=== PATIENT | male | born 1975 | race Two or more races ===

== ENCOUNTER 2024-01-27 19:11 | Inpatient (IN) | payer OTHER ==
[~2024-01-27] VITALS: Ht 167.6 cm; Wt 46.3 kg
[2024-01-27] MEDS: IV NS 0.9% 1,000 ML BAG IV ONE (19:55)
[2024-01-27] MEDS ORDERED: CEFEPIME 1 GM VIAL ONE (20:00)
[2024-01-27] MEDS ORDERED: ACETAMINOPHEN ES 500 MG TABLET ONE (20:01)
[2024-01-27] MEDS ORDERED: VANCOMYCIN 1 GM /D5W 250 ML PB IV ONE (20:01)
[2024-01-27] MEDS: ACETAMINOPHEN ES 500 MG TABLET PO ONE (20:05)
[2024-01-27] MEDS: CEFEPIME 1 GM in IV D5W 50 ML IV ONE (20:15)
[2024-01-27 20:35] LABS: BASOPHILS # (AUTO) 0.1 K/uL (0.0-0.2); BASOPHILS % (AUTO) 0.6 % (0.0-2.0); EOSINOPHILS # (AUTO) 0.2 K/uL (0.0-0.7); EOSINOPHILS % (AUTO) 0.7 % (0.0-6.0); HEMATOCRIT 26 % (39-51); HEMOGLOBIN 8.8 g/dL (13.5-17.5); LYMPHOCYTES # (AUTO) 1.9 K/uL (0.8-4.8); LYMPHOCYTES % (AUTO) 8.1 % (20.0-44.0); MEAN CORPUSCULAR HEMOGLOBIN 27 PG (26.0-33.0); MEAN CORPUSCULAR HGB CONC 34 g/dl (31.0-36.0); MEAN CORPUSCULAR VOLUME 79 fL (80-96); MONOCYTES # (AUTO) 1.3 K/uL (0.1-1.30); MONOCYTES % (AUTO) 5.5 % (2.0-12.0); NEUTROPHILS # (AUTO) 20.1 K/uL (1.8-8.9); NEUTROPHILS % (AUTO) 85.1 % (43.0-81.0); PLATELET COUNT (AUTO) 611 K/uL (150-450); RED BLOOD CELL COUNT(AUTO) 3.32 MIL/uL (4.5-6.0); RED CELL DISTRIBUTION WIDTH 18.9 % (11.5-15.0); WHITE BLOOD COUNT (AUTO) 23.7 K/uL (4.3-11.0)
[2024-01-27] MEDS: VANCOMYCIN 1 GM in IV D5W 250 ML IV ONE (20:50)
[2024-01-27 20:51] LABS: LACTIC ACID 1.9 mmol/L (0.4-2.0)
[2024-01-27 21:01] LABS: CALCIUM, SERUM 8.3 mg/dL (8.5-10.1); CARBON DIOXIDE 17 mmol/L (21-32); CHLORIDE 99 mmol/L (98-107); CREATININE 3.1 mg/dL (0.6-1.3); GLUCOSE 183 mg/dL (74-106); POTASSIUM 4.5 mmol/L (3.5-5.1); SODIUM SERUM 130 mmol/L (136-145); UREA NITROGEN, BLOOD 52 mg/dL (7-18)
[2024-01-27 21:06] LABS: ALANINE AMINOTRANSFERASE 79 U/L (12-78); ALBUMIN 1.7 g/dL (3.4-5.0); ALKALINE PHOSPHATASE 392 U/L (46-116); ASPARTATE AMINOTRANSFERASE 69 U/L (15-37); BILIRUBIN,TOTAL 1.4 mg/dL (0.2-1.0); TOTAL PROTEIN, SERUM 7.8 g/dL (6.4-8.2)
[2024-01-27 22:08] LABS: INR 1.2 (0.91-1.10); PARTIAL THROMBOPLASTIN TIME 34.8 SEC (24.3-34.3); PROTHROMBIN TIME 12.6 SECS (9.2-11.1)
[2024-01-27 23:27] LABS: ANISOCYTOSIS 1+; BASOPHILS % (MANUAL) 0 % (0.0-2.0); EOSINOPHILS % (MANUAL) 0 % (0-4); LYMPHOCYTES % (MANUAL) 10 % (16-48); MONOCYTES % (MANUAL) 3 % (0-11.0); NEUTROPHILS % (MANUAL) 87 (42-76); PLATELET ESTIMATE INCREASED
[2024-01-27] MEDS ORDERED: MAG HYDROX/AL HYDROX/SIMETH 30 ML UDC PO PRN (23:30)
[2024-01-27] MEDS ORDERED: ONDANSETRON HCL/PF 4 MG/2 ML VIAL IVP PRN (23:30)
[2024-01-27] MEDS ORDERED: ZOLPIDEM TARTRATE 5 MG TABLET PO PRN (23:30)
[2024-01-27] MEDS ORDERED: MAGNESIUM HYDROXIDE 30 ML UDC PO PRN (23:30)
[2024-01-27] MEDS ORDERED: ENOXAPARIN SODIUM 30 MG/0.3 ML DISP.SYRIN SQ SCH (23:30)
[2024-01-28] VITALS: BP 133/84; TEMP 99; O2SAT 98
[2024-01-28 04:00] VITALS: BP 128/59; TEMP 97.5; O2SAT 100
[2024-01-28 07:03] LABS: BASOPHILS # (AUTO) 0.1 K/uL (0.0-0.2); BASOPHILS % (AUTO) 0.3 % (0.0-2.0); EOSINOPHILS # (AUTO) 0.3 K/uL (0.0-0.7); EOSINOPHILS % (AUTO) 1.5 % (0.0-6.0); HEMATOCRIT 26 % (39-51); HEMOGLOBIN 8.5 g/dL (13.5-17.5); LYMPHOCYTES # (AUTO) 1.2 K/uL (0.8-4.8); LYMPHOCYTES % (AUTO) 5.5 % (20.0-44.0); MEAN CORPUSCULAR HEMOGLOBIN 26 PG (26.0-33.0); MEAN CORPUSCULAR HGB CONC 33 g/dl (31.0-36.0); MEAN CORPUSCULAR VOLUME 80 fL (80-96); MONOCYTES # (AUTO) 1.3 K/uL (0.1-1.30); MONOCYTES % (AUTO) 5.9 % (2.0-12.0); NEUTROPHILS # (AUTO) 19.2 K/uL (1.8-8.9); NEUTROPHILS % (AUTO) 86.8 % (43.0-81.0); PLATELET COUNT (AUTO) 630 K/uL (150-450); RED BLOOD CELL COUNT(AUTO) 3.25 MIL/uL (4.5-6.0); RED CELL DISTRIBUTION WIDTH 18.8 % (11.5-15.0); WHITE BLOOD COUNT (AUTO) 22.1 K/uL (4.3-11.0)
[2024-01-28 07:42] LABS: ALBUMIN 1.7 g/dL (3.4-5.0); BILIRUBIN,DIRECT 1.1 mg/dL (0.0-0.2); BILIRUBIN,TOTAL 1.4 mg/dL (0.2-1.0); CALCIUM, SERUM 9.3 mg/dL (8.5-10.1); CREATININE 2.8 mg/dL (0.6-1.3); MAGNESIUM 2.1 mg/dL (1.8-2.4); PHOSPHORUS 3.8 mg/dL (2.5-4.9); POTASSIUM 4.5 mmol/L (3.5-5.1); TOTAL PROTEIN, SERUM 8.2 g/dL (6.4-8.2)
[2024-01-28 07:51] LABS: THYROID STIMULATING HORMONE 1.02 uIU/mL (0.358-3.74)
[2024-01-28 08:00] VITALS: BP 128/58; TEMP 97.8; O2SAT 97
[2024-01-28] MEDS: PANTOPRAZOLE 40 MG TABLET.DR PO SCH (08:09)
[2024-01-28] MEDS: ENOXAPARIN SODIUM 30 MG/0.3 ML DISP.SYRIN SQ SCH (08:10)
[2024-01-28] MEDS ORDERED: NEPRO VAN 237 ML CAN PO PRN (08:30)
[2024-01-28] MEDS: IV LR 1000 ML 1,000 ML IV SCH (09:47)
[2024-01-28] MEDS ORDERED: TAMS-12 PO (09:53)
[2024-01-28] MEDS ORDERED: GABA300C PO (09:53)
[2024-01-28] MEDS ORDERED: AMLO2.5T4 PO (09:53)
[2024-01-28] MEDS ORDERED: METF-442 PO (09:53)
[2024-01-28] MEDS: NEOMY SULF/BACITRAC ZN/POLY 15 GM TUBE TP SCH (10:15)
[2024-01-28] MEDS: ACETAMINOPHEN 325 MG TABLET PO PRN (11:16)
[2024-01-28] MEDS ORDERED: ROCURONIUM BROMIDE 50 MG/5 ML ONE (11:52)
[2024-01-28] MEDS ORDERED: FENTANYL PF 250MCG/5ML AMPUL ONE (11:53)
[2024-01-28 12:00] VITALS: BP 140/85; TEMP 100.4; O2SAT 97
[2024-01-28] MEDS ORDERED: FENTANYL PF 100MCG/2ML AMPUL ONE (13:33)
[2024-01-28] MEDS ORDERED: MIDAZOLAM HCL 2 MG/2ML VIAL ONE (13:33)
[2024-01-28] MEDS ORDERED: ALBUMIN 5% 250 ML IV ONE (13:34)
[2024-01-28] MEDS ORDERED: BUPIVACAINE 0.5 % PF 150 MG/30 ML VIAL ONE (13:55)
[2024-01-28 13:59] LABS: HEMOGLOBIN 8.8 g/dL (13.5-17.5)
[2024-01-28] MEDS ORDERED: DEXTROSE 50%-WATER 50 ML DISP.SYRIN IV PRN (14:30)
[2024-01-28 16:00] VITALS: BP 146/76; TEMP 98.6; O2SAT 97
[2024-01-28] MEDS: INSULIN REGULAR, HUMAN 100 UNIT/ML 3 ML VIAL SQ PRN (16:15)
[2024-01-28] MEDS: BLOOD SUGAR DIAGNOSTIC 1 EACH STRIP IN SCH (16:15)
[2024-01-28] MEDS ORDERED: INSU100I30 SQ (16:22)
[2024-01-28] MEDS ORDERED: INSU100C10 SQ (16:22)
[2024-01-28 20:00] VITALS: BP 149/79; TEMP 101.3; O2SAT 98
[2024-01-28] MEDS: CEFEPIME 1 GM in IV D5W 50 ML IV SCH (20:23)
[2024-01-28] MEDS: VANCOMYCIN 500 MG in IV D5W 100ml IV SCH (20:25)
[2024-01-29] VITALS (7 sets, daily range): BP systolic 124–144; BP diastolic 70–80; TEMP 97.2–98.8; O2SAT 97–100
[2024-01-29 07:27] LABS: BASOPHILS # (AUTO) 0.1 K/uL (0.0-0.2); BASOPHILS % (AUTO) 0.6 % (0.0-2.0); EOSINOPHILS # (AUTO) 0.6 K/uL (0.0-0.7); EOSINOPHILS % (AUTO) 3.6 % (0.0-6.0); HEMATOCRIT 23 % (39-51); HEMOGLOBIN 7.8 g/dL (13.5-17.5); LYMPHOCYTES # (AUTO) 1.1 K/uL (0.8-4.8); LYMPHOCYTES % (AUTO) 6.3 % (20.0-44.0); MEAN CORPUSCULAR HEMOGLOBIN 26 PG (26.0-33.0); MEAN CORPUSCULAR HGB CONC 33 g/dl (31.0-36.0); MEAN CORPUSCULAR VOLUME 79 fL (80-96); MONOCYTES # (AUTO) 1.1 K/uL (0.1-1.30); MONOCYTES % (AUTO) 6.1 % (2.0-12.0); NEUTROPHILS # (AUTO) 14.8 K/uL (1.8-8.9); NEUTROPHILS % (AUTO) 83.4 % (43.0-81.0); PLATELET COUNT (AUTO) 639 K/uL (150-450); RED BLOOD CELL COUNT(AUTO) 2.97 MIL/uL (4.5-6.0); RED CELL DISTRIBUTION WIDTH 18.6 % (11.5-15.0); WHITE BLOOD COUNT (AUTO) 17.7 K/uL (4.3-11.0)
[2024-01-29 07:35] LABS: ALBUMIN 1.7 g/dL (3.4-5.0); CREATININE 1.9 mg/dL (0.6-1.3); MAGNESIUM 1.7 mg/dL (1.8-2.4); PHOSPHORUS 2.7 mg/dL (2.5-4.9); POTASSIUM 3.4 mmol/L (3.5-5.1); TOTAL PROTEIN, SERUM 7.5 g/dL (6.4-8.2)
[2024-01-29] MEDS: Z GUARD REMEDY 4 OZ OINT TP PRN (08:55)
[2024-01-29] MEDS: MUPIROCIN OINT 2% 22 GM TUBE TP SCH (08:55)
[2024-01-29] MEDS: MAGNESIUM OXIDE 400 MG TABLET PO ONE (09:00)
[2024-01-29] MEDS: POTASSIUM CHLORIDE 20 MEQ TAB.PRT.SR PO ONE (09:00)
[2024-01-29] MEDS: CEFEPIME 1 GM in IV D5W 50 ML IV SCH (10:35)
[2024-01-29] MEDS: VANCOMYCIN 1 GM in IV D5W 250ml IV SCH (11:10)
[2024-01-29] MEDS: IV LR 1000 ML 1,000 ML IV PRN (12:04)
[2024-01-29] MEDS: METRONIDAZOLE 500MG/ NS 100ML 500 MG in PREMIX 1 EA IV SCH (15:06)
[2024-01-29 15:56] LABS: APPEARANCE,URINE CLEAR (CLEAR); BILIRUBIN,URINE NEGATIVE (NEGATIVE); BLOOD, URINE 3+ Ery/uL (NEGATIVE); COLOR,URINE YELLOW (YELLOW); KETONES,URINE NEGATIVE (NEGATIVE); LEUKOCYTE ESTERASE ,URINE NEGATIVE (NEGATIVE); NITRITE, URINE NEGATIVE (NEGATIVE); PROTEIN,URINE 2+ mg/dl (NEGATIVE); UGLUCOSE 2+ mg/dL (NEGATIVE)
[2024-01-29 16:01] LABS: CREATININE, URINE 33.8 MG/DL (30.0-125.0); URINE TOTAL PROTEIN 163.1 mg/dL (0-11.9)
[2024-01-29 16:05] LABS: AMPHETAMINE, URINE NEGATIVE (NEGATIVE); BARBITURATE, URINE NEGATIVE (NEGATIVE); CANNABINOID, URINE NEGATIVE (NEGATIVE); COCCAINE, URINE NEGATIVE (NEGATIVE); OPIATE, URINE NEGATIVE (NEGATIVE); PHENCYCLIDINE SCREEN,URINE NEGATIVE (NEGATIVE)
[2024-01-29 16:12] LABS: ADD URINE CULTURE NO; BACTERIA,URINE None seen /HPF (None Seen); BENZODIAZEPINE, URINE POSITIVE (NEGATIVE); WBC,URINE 0-2 /HPF (0-3)
[2024-01-29 16:14] LABS: FINE GRANULAR CASTS,URINE Many /LPF (None Seen); HYALINE CASTS, URINE Many /LPF (None Seen); SQUAMOUS EPITHELIAL CELL,UR 0-2 /HPF (None Seen); TRICHOMONAS,URINE None Seen /HPF (None Seen); YEAST,URINE None Seen /HPF (None Seen)
[2024-01-29 16:15] LABS: MUCUS,URINE Many /LPF (None Seen)
[2024-01-29 16:29] LABS: EOSINOPHIL,URINE None Seen
[2024-01-30 00:27] VITALS: BP 137/65; TEMP 98; O2SAT 99
[2024-01-30 04:00] VITALS: BP 141/76; TEMP 99; O2SAT 97
[2024-01-30 07:36] LABS: BASOPHILS # (AUTO) 0.1 K/uL (0.0-0.2); BASOPHILS % (AUTO) 0.6 % (0.0-2.0); EOSINOPHILS # (AUTO) 0.6 K/uL (0.0-0.7); EOSINOPHILS % (AUTO) 3.7 % (0.0-6.0); HEMATOCRIT 25 % (39-51); HEMOGLOBIN 8.3 g/dL (13.5-17.5); LYMPHOCYTES # (AUTO) 1.3 K/uL (0.8-4.8); LYMPHOCYTES % (AUTO) 8.2 % (20.0-44.0); MEAN CORPUSCULAR HEMOGLOBIN 26 PG (26.0-33.0); MEAN CORPUSCULAR HGB CONC 33 g/dl (31.0-36.0); MEAN CORPUSCULAR VOLUME 79 fL (80-96); MONOCYTES # (AUTO) 0.9 K/uL (0.1-1.30); MONOCYTES % (AUTO) 5.8 % (2.0-12.0); NEUTROPHILS # (AUTO) 12.7 K/uL (1.8-8.9); NEUTROPHILS % (AUTO) 81.7 % (43.0-81.0); PLATELET COUNT (AUTO) 733 K/uL (150-450); RED BLOOD CELL COUNT(AUTO) 3.18 MIL/uL (4.5-6.0); WHITE BLOOD COUNT (AUTO) 15.6 K/uL (4.3-11.0)
[2024-01-30 07:56] LABS: ALBUMIN 1.7 g/dL (3.4-5.0); BILIRUBIN,TOTAL 0.7 mg/dL (0.2-1.0); CALCIUM, SERUM 9.1 mg/dL (8.5-10.1); CREATININE 1.8 mg/dL (0.6-1.3); MAGNESIUM 1.8 mg/dL (1.8-2.4); PHOSPHORUS 2.3 mg/dL (2.5-4.9); POTASSIUM 3.5 mmol/L (3.5-5.1); TOTAL PROTEIN, SERUM 7.8 g/dL (6.4-8.2)
[2024-01-30 08:00] VITALS: BP 115/67; TEMP 98.1; O2SAT 99
[2024-01-30 09:06] LABS: PTH, INTACT 37 pg/mL (15-65)
[2024-01-30 12:00] VITALS: BP 124/66; TEMP 98.3; O2SAT 99
[2024-01-30 16:00] VITALS: BP 124/67; TEMP 98.4; O2SAT 99
[2024-01-30] MEDS: K PHOS NEUTRAL 250 MG TABLET PO ONE (16:12)
[2024-01-30 20:00] VITALS: BP 139/65; TEMP 99; O2SAT 99
[2024-01-31] VITALS: BP 131/71; TEMP 98.4; O2SAT 98
[2024-01-31 04:00] VITALS: BP 146/74; TEMP 98.1; O2SAT 98
[2024-01-31 07:05] LABS: BASOPHILS # (AUTO) 0.1 K/uL (0.0-0.2); BASOPHILS % (AUTO) 0.8 % (0.0-2.0); EOSINOPHILS # (AUTO) 0.4 K/uL (0.0-0.7); EOSINOPHILS % (AUTO) 2.7 % (0.0-6.0); HEMATOCRIT 26 % (39-51); HEMOGLOBIN 8.3 g/dL (13.5-17.5); LYMPHOCYTES # (AUTO) 1.3 K/uL (0.8-4.8); LYMPHOCYTES % (AUTO) 8.5 % (20.0-44.0); MEAN CORPUSCULAR HEMOGLOBIN 25 PG (26.0-33.0); MEAN CORPUSCULAR HGB CONC 32 g/dl (31.0-36.0); MEAN CORPUSCULAR VOLUME 79 fL (80-96); MONOCYTES # (AUTO) 0.9 K/uL (0.1-1.30); MONOCYTES % (AUTO) 5.9 % (2.0-12.0); NEUTROPHILS # (AUTO) 12.7 K/uL (1.8-8.9); NEUTROPHILS % (AUTO) 82.1 % (43.0-81.0); PLATELET COUNT (AUTO) 800 K/uL (150-450); RED BLOOD CELL COUNT(AUTO) 3.32 MIL/uL (4.5-6.0); RED CELL DISTRIBUTION WIDTH 18.9 % (11.5-15.0); WHITE BLOOD COUNT (AUTO) 15.5 K/uL (4.3-11.0)
[2024-01-31 07:28] LABS: ALBUMIN 1.6 g/dL (3.4-5.0); BILIRUBIN,TOTAL 0.5 mg/dL (0.2-1.0); CALCIUM, SERUM 8.8 mg/dL (8.5-10.1); CREATININE 1.7 mg/dL (0.6-1.3); MAGNESIUM 1.5 mg/dL (1.8-2.4); PHOSPHORUS 3.6 mg/dL (2.5-4.9); POTASSIUM 3.6 mmol/L (3.5-5.1); TOTAL PROTEIN, SERUM 7.8 g/dL (6.4-8.2)
[2024-01-31 09:10] VITALS: BP 124/66; TEMP 98.3; O2SAT 99
[2024-01-31] MEDS: MAGNESIUM OXIDE 400 MG TABLET PO ONE (10:08)
[2024-01-31 12:13] VITALS: BP 115/67; TEMP 98.1; O2SAT 99
[2024-01-31 12:26] LABS: HIV-1 p24 ANTIGEN NON REACTIVE (NONREACTIVE); HIV-1/2 ANTIBODY NON REACTIVE (NONREACTIVE)
[2024-01-31 15:09] LABS: *SPE A/G RATIO 0.5 (0.7-1.7); *SPE ALBUMIN 2.2 g/dL (2.9-4.4); *SPE ALPHA-1-GLOBULIN 0.5 g/dL (0.0-0.4); *SPE ALPHA-2-GLOBULIN 1.1 g/dL (0.4-1.0); *SPE BETA GLOBULIN 1.3 g/dL (0.7-1.3); *SPE GLOBULIN, TOTAL 4.3 g/dL (2.2-3.9); *SPE M-SPIKE Not Observed g/dL (Not Observed); *SPE PROTEIN TOTAL 6.5 g/dL (6.0-8.5); *SPEGAMMA GLOBULIN 1.4 g/dL (0.4-1.8)
[2024-01-31 17:05] VITALS: BP 120/74; TEMP 98.1; O2SAT 99
[2024-01-31 18:40] LABS: ANISOCYTOSIS 1+; EOSINOPHILS % (MANUAL) 3 % (0-4); HYPOCHROMASIA 1+; LYMPHOCYTES % (MANUAL) 14 % (16-48); MONOCYTES % (MANUAL) 4 % (0-11.0); NEUTROPHILS % (MANUAL) 79 (42-76); PLATELET ESTIMATE INCREASED; ROULEAUX 1+
[2024-01-31 18:41] LABS: TARGET CELLS 1+
[2024-01-31 20:00] VITALS: BP 130/63; TEMP 97.7; O2SAT 97
[2024-02-01] MEDS: VANCOMYCIN 500 MG in IV D5W 100ml IV SCH (02:18)
[2024-02-01 04:00] VITALS: BP 147/85; TEMP 98.1; O2SAT 100
[2024-02-01 07:09] LABS: BASOPHILS # (AUTO) 0.1 K/uL (0.0-0.2); BASOPHILS % (AUTO) 0.8 % (0.0-2.0); EOSINOPHILS # (AUTO) 0.4 K/uL (0.0-0.7); HEMATOCRIT 24 % (39-51); LYMPHOCYTES # (AUTO) 1.3 K/uL (0.8-4.8); LYMPHOCYTES % (AUTO) 9.6 % (20.0-44.0); MEAN CORPUSCULAR HEMOGLOBIN 27 PG (26.0-33.0); MEAN CORPUSCULAR HGB CONC 34 g/dl (31.0-36.0); MEAN CORPUSCULAR VOLUME 79 fL (80-96); MONOCYTES # (AUTO) 0.7 K/uL (0.1-1.30); MONOCYTES % (AUTO) 5.1 % (2.0-12.0); NEUTROPHILS # (AUTO) 11.3 K/uL (1.8-8.9); NEUTROPHILS % (AUTO) 81.5 % (43.0-81.0); PLATELET COUNT (AUTO) 878 K/uL (150-450); RED BLOOD CELL COUNT(AUTO) 3.02 MIL/uL (4.5-6.0); RED CELL DISTRIBUTION WIDTH 19.4 % (11.5-15.0); WHITE BLOOD COUNT (AUTO) 13.9 K/uL (4.3-11.0)
[2024-02-01 08:00] VITALS: BP 125/64; TEMP 98.6; O2SAT 95
[2024-02-01 08:00] LABS: ALBUMIN 1.6 g/dL (3.4-5.0); BILIRUBIN,TOTAL 0.4 mg/dL (0.2-1.0); CREATININE 1.4 mg/dL (0.6-1.3); MAGNESIUM 1.6 mg/dL (1.8-2.4); PHOSPHORUS 3.5 mg/dL (2.5-4.9); POTASSIUM 3.6 mmol/L (3.5-5.1); TOTAL PROTEIN, SERUM 7.9 g/dL (6.4-8.2)
[2024-02-01] MEDS: MAGNESIUM OXIDE 400 MG TABLET PO ONE (10:56)
[2024-02-01] MEDS: METRONIDAZOLE 500 MG TABLET PO SCH (12:26)
[2024-02-01 16:00] VITALS: BP 140/90; TEMP 97.9; O2SAT 99
[2024-02-01] MEDS: INSULIN LISPRO/ASPART 100 UNIT/ML CARTRIDGE SQ SCH (17:10)
[2024-02-01] MEDS: GABAPENTIN 300 MG CAPSULE PO SCH (21:15)
[2024-02-01] MEDS: INSULIN GLARGINE, 100 UNIT/ML CARTRIDGE SQ SCH (21:54)
[2024-02-02] VITALS: BP 105/80; TEMP 98.7; O2SAT 99
[2024-02-02 02:40] LABS: BASOPHILS # (AUTO) 0.1 K/uL (0.0-0.2); BASOPHILS % (AUTO) 0.6 % (0.0-2.0); EOSINOPHILS # (AUTO) 0.4 K/uL (0.0-0.7); EOSINOPHILS % (AUTO) 2.9 % (0.0-6.0); HEMATOCRIT 23 % (39-51); HEMOGLOBIN 7.8 g/dL (13.5-17.5); LYMPHOCYTES # (AUTO) 1.5 K/uL (0.8-4.8); LYMPHOCYTES % (AUTO) 11.9 % (20.0-44.0); MEAN CORPUSCULAR HEMOGLOBIN 26 PG (26.0-33.0); MEAN CORPUSCULAR HGB CONC 33 g/dl (31.0-36.0); MEAN CORPUSCULAR VOLUME 79 fL (80-96); MONOCYTES # (AUTO) 0.6 K/uL (0.1-1.30); MONOCYTES % (AUTO) 4.8 % (2.0-12.0); NEUTROPHILS # (AUTO) 9.8 K/uL (1.8-8.9); NEUTROPHILS % (AUTO) 79.8 % (43.0-81.0); PLATELET COUNT (AUTO) 897 K/uL (150-450); RED BLOOD CELL COUNT(AUTO) 2.96 MIL/uL (4.5-6.0); RED CELL DISTRIBUTION WIDTH 18.8 % (11.5-15.0); WHITE BLOOD COUNT (AUTO) 12.3 K/uL (4.3-11.0)
[2024-02-02 02:52] LABS: ALBUMIN 1.6 g/dL (3.4-5.0); BILIRUBIN,TOTAL 0.4 mg/dL (0.2-1.0); CALCIUM, SERUM 8.5 mg/dL (8.5-10.1); CREATININE 1.5 mg/dL (0.6-1.3); MAGNESIUM 1.5 mg/dL (1.8-2.4); PHOSPHORUS 3.1 mg/dL (2.5-4.9); POTASSIUM 3.6 mmol/L (3.5-5.1); TOTAL PROTEIN, SERUM 7.6 g/dL (6.4-8.2)
[2024-02-02 08:00] VITALS: BP 126/83; TEMP 98.6; O2SAT 98
[2024-02-02] MEDS: TAMSULOSIN 0.4 MG CAP.SR.24H PO SCH (08:19)
[2024-02-02] MEDS: AMLODIPINE BESYLATE 2.5 MG TABLET PO SCH (08:27)
[2024-02-02] MEDS: MAGNESIUM OXIDE 400 MG TABLET PO ONE (09:34)
[2024-02-02] MEDS ORDERED: VANC500F2 IV (14:51)
[2024-02-02 16:00] VITALS: BP 130/77; TEMP 98.2; O2SAT 97
[2024-02-02 20:00] VITALS: BP 128/81; TEMP 98.4; O2SAT 99
[2024-02-03 04:00] VITALS: BP 123/71; TEMP 97.6; O2SAT 98
[2024-02-03 07:23] LABS: BASOPHILS # (AUTO) 0.1 K/uL (0.0-0.2); BASOPHILS % (AUTO) 0.8 % (0.0-2.0); EOSINOPHILS # (AUTO) 0.3 K/uL (0.0-0.7); EOSINOPHILS % (AUTO) 2.4 % (0.0-6.0); HEMATOCRIT 26 % (39-51); HEMOGLOBIN 8.3 g/dL (13.5-17.5); LYMPHOCYTES # (AUTO) 1.6 K/uL (0.8-4.8); LYMPHOCYTES % (AUTO) 11.6 % (20.0-44.0); MEAN CORPUSCULAR HEMOGLOBIN 26 PG (26.0-33.0); MEAN CORPUSCULAR HGB CONC 32 g/dl (31.0-36.0); MEAN CORPUSCULAR VOLUME 80 fL (80-96); MONOCYTES # (AUTO) 0.7 K/uL (0.1-1.30); MONOCYTES % (AUTO) 5.1 % (2.0-12.0); NEUTROPHILS % (AUTO) 80.1 % (43.0-81.0); PLATELET COUNT (AUTO) 895 K/uL (150-450); RED CELL DISTRIBUTION WIDTH 19.1 % (11.5-15.0); WHITE BLOOD COUNT (AUTO) 13.7 K/uL (4.3-11.0)
[2024-02-03 09:02] LABS: ALBUMIN 1.7 g/dL (3.4-5.0); BILIRUBIN,TOTAL 0.3 mg/dL (0.2-1.0); CALCIUM, SERUM 9.2 mg/dL (8.5-10.1); CREATININE 1.6 mg/dL (0.6-1.3); MAGNESIUM 1.9 mg/dL (1.8-2.4); PHOSPHORUS 3.8 mg/dL (2.5-4.9); TOTAL PROTEIN, SERUM 7.9 g/dL (6.4-8.2)
[2024-02-03 16:00] VITALS: BP 146/83; TEMP 98.6; O2SAT 97
== END 2024-02-03 18:40 | disposition home health service (06) | DRG 710 ==
LOC: ER 19:16 → TELE1 22:07 → MEDSG1 01-31 11:14
PROVIDERS: ADMIT Nurse Practitioner Family; ATTEND Student in an Organized Health Care Education/Training Program
PROC: 0J9Q0ZZ Drainage of Right Foot Subcutaneous Tissue and Fascia, Open Approach (ICD-10-PCS; principal; 2024-01-28)
PROC: 0QBL0ZX Excision of Right Tarsal, Open Approach, Diagnostic (ICD-10-PCS; 2024-01-28)
PROC: 0JBQ0ZZ Excision of Right Foot Subcutaneous Tissue and Fascia, Open Approach (ICD-10-PCS; 2024-01-28)
PROC: 0KBV0ZZ Excision of Right Foot Muscle, Open Approach (ICD-10-PCS; 2024-02-01)
PROC: 02HV33Z Insertion of Infusion Device into Superior Vena Cava, Percutaneous Approach (ICD-10-PCS; 2024-02-02)
PROC: B548ZZA Ultrasonography of Superior Vena Cava, Guidance (ICD-10-PCS; 2024-02-02)
DX: A41.02 Sepsis due to Methicillin resistant Staphylococcus aureus (principal); N17.0 Acute kidney failure with tubular necrosis; M00.9 Pyogenic arthritis, unspecified; L03.115 Cellulitis of right lower limb; E87.1 Hypo-osmolality and hyponatremia; E88.09 Other disorders of plasma-protein metabolism, not elsewhere classified; L97.409 Non-pressure chronic ulcer of unspecified heel and midfoot with unspecified severity; E11.69 Type 2 diabetes mellitus with other specified complication; M86.671 Other chronic osteomyelitis, right ankle and foot; E11.621 Type 2 diabetes mellitus with foot ulcer; E11.51 Type 2 diabetes mellitus with diabetic peripheral angiopathy without gangrene; I12.9 Hypertensive chronic kidney disease with stage 1 through stage 4 chronic kidney disease, or unspecified chronic kidney disease; N18.9 Chronic kidney disease, unspecified; D64.9 Anemia, unspecified; E11.42 Type 2 diabetes mellitus with diabetic polyneuropathy; E86.9 Volume depletion, unspecified; E87.6 Hypokalemia; Z59.00 Homelessness unspecified; E11.22 Type 2 diabetes mellitus with diabetic chronic kidney disease; L03.113 Cellulitis of right upper limb; K76.9 Liver disease, unspecified; M89.8X9 Other specified disorders of bone, unspecified site; E11.610 Type 2 diabetes mellitus with diabetic neuropathic arthropathy; L02.611 Cutaneous abscess of right foot; L97.418 Non-pressure chronic ulcer of right heel and midfoot with other specified severity; K74.60 Unspecified cirrhosis of liver; M65.9 Synovitis and tenosynovitis, unspecified; Z79.4 Long term (current) use of insulin; T23.001A Burn of unspecified degree of right hand, unspecified site, initial encounter; Z79.84 Long term (current) use of oral hypoglycemic drugs; S61.401A Unspecified open wound of right hand, initial encounter; X58.XXXA Exposure to other specified factors, initial encounter; Y93.9 Activity, unspecified; Y92.009 Unspecified place in unspecified non-institutional (private) residence as the place of occurrence of the external cause
CPT/HCPCS: 36415; 71045-TC; 73130-TC; 73564-TC; 73630-TC; 73718-TC; 76770-TC; 80048-TC; 80053-TC; 80076-TC; 80202-TC; 81001; 82150-TC; 82550-TC; 82570-TC; 82962-TC; 83605-TC; 83690-TC; 83735-TC; 83970; 84100-TC; 84155; 84165; 84300-TC; 84443-TC; 84484-TC; 85025-TC; 85027-TC; 85652-TC; 85730-TC; 86803; 86850-TC; 87040-TC; 87086-TC; 87806; 88305-TC; 88311-TC; 93307-TC; A4216; A4223; A6253; A6403; A6407; G0378; J0692; J1650; J1815; J2250; J2704; J3010; J3370; J3490; J7030; J7042; J7050; J7060; J7120; P9045

== ENCOUNTER 2024-02-11 16:59 | Inpatient (IN) | payer OTHER ==
[~2024-02-11] VITALS: Ht 165.1 cm; Wt 71.7 kg
[2024-02-11 09:30] VITALS: BP 129/80; TEMP 98.2; O2SAT 98
[~2024-02-11 16:59] MED LIST: AMLO2.5T4 PO; GABA300C PO; INSU100C10 SQ; INSU100I30 SQ; METF-442 PO; TAMS-12 PO; VANC500F2 IV
[2024-02-11 18:59] LABS: BASOPHILS # (AUTO) 0.1 K/uL (0.0-0.2); EOSINOPHILS # (AUTO) 0.3 K/uL (0.0-0.7); HEMATOCRIT 24 % (39-51); HEMOGLOBIN 7.8 g/dL (13.5-17.5); LYMPHOCYTES # (AUTO) 1.6 K/uL (0.8-4.8); LYMPHOCYTES % (AUTO) 18.7 % (20.0-44.0); MEAN CORPUSCULAR HEMOGLOBIN 25 PG (26.0-33.0); MEAN CORPUSCULAR HGB CONC 32 g/dl (31.0-36.0); MEAN CORPUSCULAR VOLUME 78 fL (80-96); MONOCYTES # (AUTO) 0.6 K/uL (0.1-1.30); MONOCYTES % (AUTO) 6.6 % (2.0-12.0); NEUTROPHILS # (AUTO) 6.1 K/uL (1.8-8.9); NEUTROPHILS % (AUTO) 70.7 % (43.0-81.0); PLATELET COUNT (AUTO) 681 K/uL (150-450); RED BLOOD CELL COUNT(AUTO) 3.11 MIL/uL (4.5-6.0); WHITE BLOOD COUNT (AUTO) 8.7 K/uL (4.3-11.0)
[2024-02-11] MEDS: IV NS 0.9% 1,000 ML BAG IV ONE (19:00)
[2024-02-11] MEDS: D5W IV ONE (19:00)
[2024-02-11] MEDS: VANCOMYCIN HCL IV ONE (19:00)
[2024-02-11 19:19] LABS: CALCIUM, SERUM 9.2 mg/dL (8.5-10.1); CREATININE 3.1 mg/dL (0.6-1.3); POTASSIUM 4.9 mmol/L (3.5-5.1)
[2024-02-11] MEDS ORDERED: VANCOMYCIN 500 MG VIAL ONE (19:54)
[2024-02-11] MEDS ORDERED: ZOLPIDEM TARTRATE 5 MG TABLET PO PRN (21:30)
[2024-02-11] MEDS ORDERED: Z GUARD REMEDY 4 OZ OINT TP PRN (21:30)
[2024-02-11] MEDS ORDERED: MAGNESIUM HYDROXIDE 30 ML UDC PO PRN (21:30)
[2024-02-11] MEDS ORDERED: ONDANSETRON HCL/PF 4 MG/2 ML VIAL IVP PRN (21:30)
[2024-02-11] MEDS: INSULIN GLARGINE, 100 UNIT/ML CARTRIDGE SQ SCH (23:38)
[2024-02-12] MEDS: ACETAMINOPHEN 325 MG TABLET PO PRN (03:31)
[2024-02-12 06:59] LABS: BASOPHILS # (AUTO) 0.1 K/uL (0.0-0.2); BASOPHILS % (AUTO) 1.3 % (0.0-2.0); EOSINOPHILS # (AUTO) 0.5 K/uL (0.0-0.7); EOSINOPHILS % (AUTO) 7.3 % (0.0-6.0); HEMATOCRIT 23 % (39-51); HEMOGLOBIN 7.5 g/dL (13.5-17.5); LYMPHOCYTES # (AUTO) 1.3 K/uL (0.8-4.8); LYMPHOCYTES % (AUTO) 19.5 % (20.0-44.0); MEAN CORPUSCULAR HEMOGLOBIN 26 PG (26.0-33.0); MEAN CORPUSCULAR HGB CONC 33 g/dl (31.0-36.0); MEAN CORPUSCULAR VOLUME 78 fL (80-96); MONOCYTES # (AUTO) 0.4 K/uL (0.1-1.30); MONOCYTES % (AUTO) 6.3 % (2.0-12.0); NEUTROPHILS # (AUTO) 4.4 K/uL (1.8-8.9); NEUTROPHILS % (AUTO) 65.6 % (43.0-81.0); PLATELET COUNT (AUTO) 642 K/uL (150-450); RED BLOOD CELL COUNT(AUTO) 2.91 MIL/uL (4.5-6.0); RED CELL DISTRIBUTION WIDTH 18.6 % (11.5-15.0); WHITE BLOOD COUNT (AUTO) 6.7 K/uL (4.3-11.0)
[2024-02-12 07:16] LABS: ALBUMIN 1.6 g/dL (3.4-5.0); BILIRUBIN,DIRECT 0.2 mg/dL (0.0-0.2); BILIRUBIN,TOTAL 0.3 mg/dL (0.2-1.0); CALCIUM, SERUM 8.6 mg/dL (8.5-10.1); CREATININE 2.3 mg/dL (0.6-1.3); PHOSPHORUS 4.2 mg/dL (2.5-4.9); POTASSIUM 4.6 mmol/L (3.5-5.1); TOTAL PROTEIN, SERUM 8.5 g/dL (6.4-8.2)
[2024-02-12 07:45] LABS: THYROID STIMULATING HORMONE 2.03 uIU/mL (0.358-3.74)
[2024-02-12 08:00] VITALS: BP 117/80; TEMP 97.7; O2SAT 98
[2024-02-12] MEDS: TAMSULOSIN 0.4 MG CAP.SR.24H PO SCH (08:19)
[2024-02-12] MEDS: AMLODIPINE BESYLATE 2.5 MG TABLET PO SCH (08:19)
[2024-02-12] MEDS: METFORMIN 500 MG TABLET PO SCH (08:19)
[2024-02-12] MEDS: INSULIN LISPRO/ASPART 100 UNIT/ML CARTRIDGE SQ SCH (08:21)
[2024-02-12] MEDS: ENOXAPARIN SODIUM 40 MG/0.4 ML DISP.SYRIN SQ SCH (08:22)
[2024-02-12] MEDS: VANCOMYCIN 500 MG in IV D5W 100ml IV SCH (09:43)
[2024-02-12] MEDS: GABAPENTIN 300 MG CAPSULE PO SCH (12:03)
[2024-02-12] MEDS: MAG HYDROX/AL HYDROX/SIMETH 30 ML UDC PO PRN (15:05)
[2024-02-12 20:00] VITALS: BP 135/70; TEMP 98.2; O2SAT 99
[2024-02-12 20:20] VITALS: BP 135/70; TEMP 98.2; O2SAT 99
[2024-02-13 07:00] VITALS: BP 122/72; TEMP 98.2; O2SAT 99
[2024-02-13 16:00] VITALS: BP 155/87; TEMP 98.2; O2SAT 98
[2024-02-13 20:19] VITALS: BP 146/81; TEMP 98.1; O2SAT 99
[2024-02-13 20:37] LABS: APPEARANCE,URINE TURBID (CLEAR); BILIRUBIN,URINE NEGATIVE (NEGATIVE); BLOOD, URINE 1+ Ery/uL (NEGATIVE); COLOR,URINE YELLOW (YELLOW); KETONES,URINE NEGATIVE (NEGATIVE); LEUKOCYTE ESTERASE ,URINE NEGATIVE (NEGATIVE); NITRITE, URINE NEGATIVE (NEGATIVE); PH,URINE 5.5 (5.0-8.0); PROTEIN,URINE 3+ mg/dl (NEGATIVE); UGLUCOSE TRACE mg/dL (NEGATIVE); UROBILINOGEN,URINE 0.2 EU/dL (0.2)
[2024-02-13 20:48] LABS: COARSE GRANULAR CASTS,URINE Few /LPF (None Seen)
[2024-02-13 20:49] LABS: FINE GRANULAR CASTS,URINE Many /LPF (None Seen); MUCUS,URINE Few /LPF (None Seen); URINE AMORPHOUS URATE Few /HPF (None Seen)
[2024-02-13 20:50] LABS: CREATININE, URINE 128.4 MG/DL (30.0-125.0); URINE TOTAL PROTEIN 448.6 mg/dL (0-11.9)
[2024-02-13 20:52] LABS: WBC,URINE 0-2 /HPF (0-3)
[2024-02-13 20:53] LABS: SQUAMOUS EPITHELIAL CELL,UR 0-2 /HPF (None Seen)
[2024-02-13 20:54] LABS: ADD URINE CULTURE YES; BACTERIA,URINE 2+ /HPF (None Seen)
[2024-02-13 21:26] LABS: EOSINOPHIL,URINE None Seen
[2024-02-14 06:54] LABS: CALCIUM, SERUM 8.3 mg/dL (8.5-10.1); CREATININE 1.7 mg/dL (0.6-1.3); POTASSIUM 4.7 mmol/L (3.5-5.1)
[2024-02-14] MEDS: HYDROCODONE/APAP 5/325MG TABLET PO PRN (07:29)
[2024-02-14 08:00] VITALS: BP 148/85; TEMP 98.8; O2SAT 99
[2024-02-14] MEDS ORDERED: ACETAMINOPHEN 325 MG TABLET PO PRN (09:00)
[2024-02-14 16:04] VITALS: BP 126/65; TEMP 98.8; O2SAT 97
[2024-02-14 20:59] VITALS: BP 116/65; TEMP 100.8; O2SAT 97
[2024-02-15] VITALS (8 sets, daily range): BP systolic 97–162; BP diastolic 54–96; TEMP 97.9–102; O2SAT 97–98
[2024-02-15 07:17] LABS: BASOPHILS # (AUTO) 0.1 K/uL (0.0-0.2); BASOPHILS % (AUTO) 0.8 % (0.0-2.0); EOSINOPHILS % (AUTO) 0.4 % (0.0-6.0); HEMATOCRIT 21 % (39-51); LYMPHOCYTES # (AUTO) 0.5 K/uL (0.8-4.8); MEAN CORPUSCULAR HEMOGLOBIN 26 PG (26.0-33.0); MEAN CORPUSCULAR HGB CONC 33 g/dl (31.0-36.0); MEAN CORPUSCULAR VOLUME 80 fL (80-96); MONOCYTES # (AUTO) 0.5 K/uL (0.1-1.30); MONOCYTES % (AUTO) 4.6 % (2.0-12.0); NEUTROPHILS # (AUTO) 9.5 K/uL (1.8-8.9); NEUTROPHILS % (AUTO) 89.2 % (43.0-81.0); PLATELET COUNT (AUTO) 453 K/uL (150-450); RED CELL DISTRIBUTION WIDTH 19.1 % (11.5-15.0); WHITE BLOOD COUNT (AUTO) 10.7 K/uL (4.3-11.0)
[2024-02-15 07:49] LABS: CALCIUM, SERUM 7.9 mg/dL (8.5-10.1); CREATININE 2.3 mg/dL (0.6-1.3); POTASSIUM 5.1 mmol/L (3.5-5.1)
[2024-02-15 07:52] LABS: HEMOGLOBIN 6.8 g/dL (13.5-17.5)
[2024-02-15] MEDS: PANTOPRAZOLE 40 MG TABLET.DR PO SCH (09:10)
[2024-02-15] MEDS ORDERED: DEXTROSE 50%-WATER 50 ML DISP.SYRIN IV PRN (10:00)
[2024-02-15 10:29] LABS: BAND % (MANUAL) 2 % (0.0-5.0); EOSINOPHILS % (MANUAL) 0 % (0-4); LYMPHOCYTES % (MANUAL) 5 % (16-48); MONOCYTES % (MANUAL) 1 % (0-11.0); NEUTROPHILS % (MANUAL) 92 (42-76); REACTIVE LYMPHOCYTES 0 % (0-0)
[2024-02-15 10:30] LABS: PLATELET ESTIMATE INCREASED
[2024-02-15] MEDS: INSULIN REGULAR, HUMAN 100 UNIT/ML 3 ML VIAL SQ PRN (13:51)
[2024-02-15] MEDS: BLOOD SUGAR DIAGNOSTIC 1 EACH STRIP IN SCH (13:52)
[2024-02-15] MEDS: diphenhydrAMINE HCL 50 MG/ML VIAL IV ONE (15:06)
[2024-02-15] MEDS: hydrALAZINE HCL IV 20 MG VIAL IV PRN (15:45)
[2024-02-15] MEDS: DAKINS QUARTER STRENGTH (0.125%) 480 ML BOTTLE TOP SCH (17:07)
[2024-02-15] MEDS: CLOTRIMAZOLE 1% 15 GM TUBE TP SCH (17:08)
[2024-02-15 17:44] LABS: APPEARANCE,URINE CLEAR (CLEAR); BILIRUBIN,URINE NEGATIVE (NEGATIVE); BLOOD, URINE 2+ Ery/uL (NEGATIVE); COLOR,URINE YELLOW (YELLOW); KETONES,URINE NEGATIVE (NEGATIVE); LEUKOCYTE ESTERASE ,URINE 1+ (NEGATIVE); NITRITE, URINE POSITIVE (NEGATIVE); PH,URINE 5.5 (5.0-8.0); PROTEIN,URINE 3+ mg/dl (NEGATIVE); UGLUCOSE 1+ mg/dL (NEGATIVE); UROBILINOGEN,URINE 0.2 EU/dL (0.2)
[2024-02-15] MEDS: IV NS 0.9% 1,000 ML BAG IV ONE (19:34)
[2024-02-15 20:44] LABS: ADD URINE CULTURE YES; BACTERIA,URINE 2+ /HPF (None Seen); SQUAMOUS EPITHELIAL CELL,UR 0-2 /HPF (None Seen)
[2024-02-15 20:45] LABS: FINE GRANULAR CASTS,URINE Few /LPF (None Seen)
[2024-02-15 20:47] LABS: MUCUS,URINE Moderate /LPF (None Seen)
[2024-02-16 04:55] VITALS: BP 97/54; TEMP 97.9; O2SAT 98
[2024-02-16 06:36] LABS: BASOPHILS # (AUTO) 0.1 K/uL (0.0-0.2); EOSINOPHILS # (AUTO) 0.3 K/uL (0.0-0.7); HEMATOCRIT 21 % (39-51); LYMPHOCYTES # (AUTO) 1.5 K/uL (0.8-4.8); LYMPHOCYTES % (AUTO) 14.4 % (20.0-44.0); MEAN CORPUSCULAR HEMOGLOBIN 26 PG (26.0-33.0); MEAN CORPUSCULAR HGB CONC 33 g/dl (31.0-36.0); MEAN CORPUSCULAR VOLUME 79 fL (80-96); MONOCYTES # (AUTO) 0.9 K/uL (0.1-1.30); MONOCYTES % (AUTO) 8.9 % (2.0-12.0); NEUTROPHILS # (AUTO) 7.6 K/uL (1.8-8.9); NEUTROPHILS % (AUTO) 72.7 % (43.0-81.0); PLATELET COUNT (AUTO) 403 K/uL (150-450); RED BLOOD CELL COUNT(AUTO) 2.68 MIL/uL (4.5-6.0); RED CELL DISTRIBUTION WIDTH 19.2 % (11.5-15.0); WHITE BLOOD COUNT (AUTO) 10.5 K/uL (4.3-11.0)
[2024-02-16 07:09] LABS: CALCIUM, SERUM 8.4 mg/dL (8.5-10.1); POTASSIUM 4.4 mmol/L (3.5-5.1)
[2024-02-16 07:30] VITALS: BP 129/72; TEMP 98.2; O2SAT 97
[2024-02-16] MEDS: SOD FERRIC GLUC 125 MG in IV NS 0.9% 100 ML IV SCH (15:23)
[2024-02-16 16:02] VITALS: BP 142/72; TEMP 99.1; O2SAT 96
[2024-02-16 16:56] LABS: OCCULT BLOOD STOOL NEGATIVE (NEGATIVE)
[2024-02-16 20:01] VITALS: BP 117/71; TEMP 99.1; O2SAT 98
[2024-02-17 00:03] VITALS: BP 133/79; TEMP 98.7; O2SAT 98
[2024-02-17 04:02] VITALS: BP 128/67; TEMP 98.7; O2SAT 98
[2024-02-17 06:59] LABS: BASOPHILS # (AUTO) 0.1 K/uL (0.0-0.2); BASOPHILS % (AUTO) 0.8 % (0.0-2.0); EOSINOPHILS # (AUTO) 0.4 K/uL (0.0-0.7); EOSINOPHILS % (AUTO) 4.4 % (0.0-6.0); HEMATOCRIT 21 % (39-51); HEMOGLOBIN 7.1 g/dL (13.5-17.5); LYMPHOCYTES # (AUTO) 1.3 K/uL (0.8-4.8); LYMPHOCYTES % (AUTO) 14.4 % (20.0-44.0); MEAN CORPUSCULAR HEMOGLOBIN 27 PG (26.0-33.0); MEAN CORPUSCULAR HGB CONC 34 g/dl (31.0-36.0); MEAN CORPUSCULAR VOLUME 79 fL (80-96); MONOCYTES # (AUTO) 0.8 K/uL (0.1-1.30); MONOCYTES % (AUTO) 9.1 % (2.0-12.0); NEUTROPHILS # (AUTO) 6.6 K/uL (1.8-8.9); NEUTROPHILS % (AUTO) 71.3 % (43.0-81.0); PLATELET COUNT (AUTO) 445 K/uL (150-450); RED BLOOD CELL COUNT(AUTO) 2.68 MIL/uL (4.5-6.0); RED CELL DISTRIBUTION WIDTH 19.1 % (11.5-15.0); WHITE BLOOD COUNT (AUTO) 9.3 K/uL (4.3-11.0)
[2024-02-17 07:25] LABS: CALCIUM, SERUM 8.6 mg/dL (8.5-10.1); CREATININE 1.8 mg/dL (0.6-1.3); MAGNESIUM 1.9 mg/dL (1.8-2.4); PHOSPHORUS 3.5 mg/dL (2.5-4.9); POTASSIUM 4.3 mmol/L (3.5-5.1)
[2024-02-17 08:00] VITALS: BP 138/82; TEMP 97.5; O2SAT 98
[2024-02-17 08:50] LABS: THYROID STIMULATING HORMONE 3.72 uIU/mL (0.358-3.74); URIC ACID 7.1 mg/dL (2.6-7.2)
[2024-02-17 12:00] VITALS: BP 135/83; TEMP 98.4; O2SAT 98
[2024-02-17 16:00] VITALS: BP 146/85; TEMP 97.5; O2SAT 99
[2024-02-17 20:00] VITALS: BP 138/84; TEMP 98.1; O2SAT 97
[2024-02-17] MEDS: VANCOMYCIN 750 MG in IV D5W 250 ML IV SCH (21:38)
[2024-02-17] MEDS ORDERED: CEFEPIME 1 GM VIAL ONE (23:37)
[2024-02-18] MEDS: CEFEPIME 2 GM in IV D5W 100 ML IV SCH ×2 (00:26→09:01)
[2024-02-18 05:06] VITALS: BP 136/71; TEMP 98.8; O2SAT 98
[2024-02-18 07:59] LABS: CALCIUM, SERUM 8.5 mg/dL (8.5-10.1); CREATININE 1.7 mg/dL (0.6-1.3)
[2024-02-18 09:18] VITALS: BP 166/93; TEMP 97.9; O2SAT 98
[2024-02-18 12:52] VITALS: BP 131/76; TEMP 98.2; O2SAT 99
[2024-02-18 16:40] VITALS: BP 149/84; TEMP 98.8; O2SAT 95
[2024-02-18 20:00] VITALS: BP 133/77; TEMP 98.6; O2SAT 97
[2024-02-18 20:05] VITALS: BP 133/77; TEMP 98.6; O2SAT 97
[2024-02-19] VITALS: BP 127/78; TEMP 98.2; O2SAT 95
[2024-02-19 04:00] VITALS: BP 127/70; TEMP 98.6; O2SAT 93; O2SAT 95
[2024-02-19 08:29] VITALS: BP 144/90
[2024-02-19 08:32] LABS: CALCIUM, SERUM 8.8 mg/dL (8.5-10.1); CREATININE 1.8 mg/dL (0.6-1.3); POTASSIUM 5.4 mmol/L (3.5-5.1)
[2024-02-19] MEDS: SODIUM POLYSTYRENE SULFONATE 15 G/60 ML BOTTLE PO ONE (09:37)
== END 2024-02-19 13:10 | DRG 317 ==
LOC: ER 17:10 → MED 21:29 → TELE 02-16 00:23
PROVIDERS: ADMIT Nurse Practitioner Family; ATTEND Nurse Practitioner Acute Care
PROC: 0KBV0ZZ Excision of Right Foot Muscle, Open Approach (ICD-10-PCS; principal; 2024-02-15)
PROC: 30233N1 Transfusion of Nonautologous Red Blood Cells into Peripheral Vein, Percutaneous Approach (ICD-10-PCS; 2024-02-15)
DX: E11.69 Type 2 diabetes mellitus with other specified complication (principal); M86.8X7 Other osteomyelitis, ankle and foot; N17.0 Acute kidney failure with tubular necrosis; E43 Unspecified severe protein-calorie malnutrition; E11.42 Type 2 diabetes mellitus with diabetic polyneuropathy; E11.610 Type 2 diabetes mellitus with diabetic neuropathic arthropathy; M00.9 Pyogenic arthritis, unspecified; E87.1 Hypo-osmolality and hyponatremia; D63.8 Anemia in other chronic diseases classified elsewhere; E11.621 Type 2 diabetes mellitus with foot ulcer; E11.22 Type 2 diabetes mellitus with diabetic chronic kidney disease; E86.1 Hypovolemia; L03.115 Cellulitis of right lower limb; E66.9 Obesity, unspecified; I12.9 Hypertensive chronic kidney disease with stage 1 through stage 4 chronic kidney disease, or unspecified chronic kidney disease; N18.9 Chronic kidney disease, unspecified; E11.51 Type 2 diabetes mellitus with diabetic peripheral angiopathy without gangrene; Z59.00 Homelessness unspecified; Z79.84 Long term (current) use of oral hypoglycemic drugs; Z79.4 Long term (current) use of insulin; N40.0 Benign prostatic hyperplasia without lower urinary tract symptoms; Z68.26 Body mass index [BMI] 26.0-26.9, adult; D50.9 Iron deficiency anemia, unspecified; Z86.14 Personal history of Methicillin resistant Staphylococcus aureus infection; Z87.891 Personal history of nicotine dependence; K76.9 Liver disease, unspecified; T80.89XA Other complications following infusion, transfusion and therapeutic injection, initial encounter; Y84.8 Other medical procedures as the cause of abnormal reaction of the patient, or of later complication, without mention of misadventure at the time of the procedure; Y92.230 Patient room in hospital as the place of occurrence of the external cause; E88.09 Other disorders of plasma-protein metabolism, not elsewhere classified
CPT/HCPCS: 36415; 73630-TC; 76770-TC; 80048-TC; 80076-TC; 80202-TC; 81001; 82272-TC; 82570-TC; 82962-TC; 83735-TC; 83935-TC; 84100-TC; 84300-TC; 84443-TC; 84550-TC; 85025-TC; 86140-TC; 86850-TC; 87040-TC; 87081-TC; 87186-TC; 93307-TC; A4223; A6253; G0378; J0360; J0692; J1200; J1650; J1815; J2916; J3370; J3371; J7030; J7040; J7050; J7060; P9016